=== PATIENT | female | born 1985 | race Asian ===

== ENCOUNTER 2019-01-15 21:48 | Emergency (ER) | payer MEDICAID, OTHER ==
[2019-01-15] MEDS: PROMETHAZINE/DM (CUP) PO (23:38)
[2019-01-15] MEDS: ACETAMINOPHEN 500 MG TAB PO (23:39)
[2019-01-15 23:58] LABS: ADD UMIC YES; UR ASCORBIC ACID NEGATIVE (NEGATIVE); UR BACTERIA FEW /HPF (NONE SEEN); UR BILIRUBIN (Dip) NEGATIVE (NEGATIVE); UR BLOOD (Dip) 1+ mg/dL (NEGATIVE); UR CLARITY CLEAR (CLEAR); UR COLOR COLORLESS (YELLOW); UR GLUCOSE (Dip) NEGATIVE (NEGATIVE); UR KETONES (Dip) NEGATIVE (NEGATIVE); UR LEUKOCYTE ESTERASE (Dip) 1+ Leu/ul (NEGATIVE); UR NITRITE (Dip) NEGATIVE (NEGATIVE); UR RBC 1 /HPF (0-5); UR SPECIFIC GRAVITY (Dip) 1.005 (1.003-1.030); UR SQUAMOUS EPITHELIAL CELL FEW /HPF (FEW); UR TOTAL PROTEIN (Dip) NEGATIVE (NEGATIVE); UR UROBILINOGEN (Dip) NEGATIVE (NEGATIVE); UR WBC 2 /HPF (0-5)
[2019-01-16 00:20] LABS: MONOTEST Negative (NEG)
[2019-01-16] MEDS: CEFTRIAXONE 1 GM INJ IM (00:56)
[2019-01-16] MEDS: LIDOCAINE 1% (MPF) 5 ML VIAL INJ (00:56)
== END 2019-01-16 01:15 | disposition home or self-care (01) ==
LOC: FTE 01-16 01:15
DX: O23.42 Unspecified infection of urinary tract in pregnancy, second trimester (principal); J06.9 Acute upper respiratory infection, unspecified; O99.512 Diseases of the respiratory system complicating pregnancy, second trimester; Z3A.21 21 weeks gestation of pregnancy
CPT/HCPCS: 36415; 81001; 86308; 87086; 87880; 96372; 99284-25